=== PATIENT | male | born 1985 | race Caucasian/White ===

== ENCOUNTER 2019-05-15 11:01 | Emergency (ER) | payer OTHER ==
[~2019-05-15] VITALS: Ht 188 cm; Wt 136.1 kg
[2019-05-15] MEDS ORDERED: DEPAKOTE ER250 MG (11:08)
[2019-05-15] MEDS ORDERED: ZESTRIL20 MG (11:08)
[2019-05-15] MEDS ORDERED: ATIVAN0.5 M1 (11:08)
[2019-05-15] MEDS ORDERED: BENADRYL25 MG (11:09)
[2019-05-15] MEDS ORDERED: LAMICTAL100 M1 (11:09)
== END 2019-05-15 13:24 | disposition home or self-care (01) ==
LOC: ER 11:01
DX: R23.8 Other skin changes (principal)

== ENCOUNTER 2020-11-06 09:01 | Outpatient (CLI) | payer OTHER | END 2020-11-06 11:13 | disposition home or self-care (01) | LOC: RAD 09:01 | PROVIDERS: ATTEND Orthopaedic Surgery | DX: M25.562 Pain in left knee (principal) ==

== ENCOUNTER → 2020-11-06 | Emergency (ER) | payer OTHER ==
[~2020-11-06] VITALS: Ht 188 cm; Wt 129.7 kg
[~2020-11-06] MED LIST: ATIVAN0.5 M1; BENADRYL25 MG; DEPAKOTE ER250 MG; LAMICTAL100 M1; ZESTRIL20 MG
== END | disposition left against medical advice (07) ==
LOC: ER 13:16
DX: Z53.20 Procedure and treatment not carried out because of patient's decision for unspecified reasons (principal)